=== PATIENT | female | born 1940 | race Caucasian/White ===

== ENCOUNTER → 2016-04-30 | Outpatient (CLI) | payer OTHER ==
[~2016-04-30] MED LIST: ACET-1311 PO; ASPEC81 PO; ATV/1 PO; AZITTAB PO; CLC100X PO; CLIN300C2 PO; CMD/25 PO; FERR324T PO; LOSA1TAB38 PO; MECL1TAB42 PO; MIRA100T PO; OXYB3.9D TD; OXYB5TAB74 PO; PRLSR20 PO; SENN-61 PO; SENN1TAB77 PO; viactiv PO
--- NOTE | 2016-04-30 11:28 | DIAGNOSTIC IMAGING REPORT ---
RIGHT RIBS UNILATERAL W/CHEST CLINICAL HISTORY: Right rib pain status post trauma COMPARISON STUDY: No previous studies for comparison. FINDINGS: The erect chest reveals no pneumothorax. There are minor left basilar atelectatic changes. There is aortic tortuosity. No right-sided rib fractures are visualized. IMPRESSION: No right-sided rib fractures identified. No evidence of pneumothorax. Electronically signed by: Edgar Yung M.D. 04/30/2016 11:27 AM Dictated Date/Time: 04/30/2016 11:25 AM
== END | disposition home or self-care (01) ==
LOC: C.RDSM 10:35
PROVIDERS: ATTEND Physical Medicine & Rehabilitation Sports Medicine
DX: R07.81 Pleurodynia (principal)

== ENCOUNTER 2016-06-17 06:46 | Emergency (ER) | payer OTHER ==
[~2016-06-17] VITALS: Ht 154.9 cm; Wt 66.7 kg
[~2016-06-17 06:46] MED LIST changes: -ACET-1311 PO; -AZITTAB PO; -CLIN300C2 PO; -MECL1TAB42 PO; -MIRA100T PO; -OXYB3.9D TD; -OXYB5TAB74 PO
[2016-06-17 06:51] VITALS: TEMP 36.6; Ht 154.9 cm; Wt 66.7 kg
[2016-06-17] MEDS ORDERED: MECLIZINE HCL 25 MG TAB PO STA (07:13)
--- NOTE | 2016-06-17 07:19 | EMERGENCY ROOM VISIT NOTE ---
History First contact with patient: 07:05 Chief Complaint: SINUS CONGESTION/PRESSURE Stated Complaint: BALANCE OFF,COUGH,SINUS DRAINAGE History of Present Illness The patient is a 75 year old female who presents to the Emergency Room via private vehicle accompanied by with complaints of "balance off, cough, sinus drainage". The patient states that beginning April 10 she developed a cough, and sinus congestion with postnasal drainage. She states this was constant, and she utilized [id number] medication and felt better. She states that the cough has persisted at night, she blows her nose she will see little bit of blood. She notes that beginning last night she felt slightly off balance, almost as if she was on a cruise. She states she woke up today and still felt off balance. There is associated nonproductive cough. The patient denies any vision changes, chest pain, shortness of breath, speech troubles, unilateral or extremity weakness, nausea, vomiting, history of pulmonary embolism, history of stroke, history of myocardial infarction, diarrhea or constipation. The patient is not on any blood thinners. Review of Systems A complete 10-point Review of Systems was discussed with the patient, with pertinent positives and negatives listed in the History of Present Illness. All remaining Review of Systems questions can be considered negative unless otherwise specified. Past Medical/Surgical History High blood pressure, urinary problems. Family History Heart disease, high blood pressure Social History Smoking Status: Never Smoker Social History: Patient lives at home with male, denies tobacco and alcohol use. Current/Historical Medications Scheduled Azithromycin (Zithromax Z-Yovany), 1 PKT PO UD Lorazepam (Ativan), 1 MG PO HS Losartan Potassium (Cozaar), 100 MG PO QPM Oxybutynin Chloride (Oxytrol), 1 PATCH TD TW Scheduled PRN Meclizine Hcl (Meclizine Hcl), 1 TAB PO TID PRN for Dizziness or Vertigo Allergies Coded Allergies: Ciprofloxacin (Verified Allergy, Intermediate, HIVES, 01/07/11) Penicillins (Verified Allergy, Intermediate, HIVES, NOT ALLERGIC TO CEPHALOSPORINS, 01/21/12) Morphine (Verified Adverse Reaction, Intermediate, N/V, 01/20/12) Codeine (Verified Adverse Reaction, Unknown, STOMACH PROBLEMS, 01/22/12) Physical Exam Vital Signs Date Time Temp Pulse Resp B/P Pulse Ox O2 Delivery O2 Flow Rate FiO2 06/17/16 08:26 71 18 127/74 97 Room Air 06/17/16 06:51 36.6 70 20 142/84 97 Room Air Physical Exam VITAL SIGNS - Vital signs and nursing notes were reviewed. Patient is afebrile , normotensive, non-tachycardic and saturating well on room air 97%. GENERAL -75-year-old female appearing her stated age who is in no acute distress. Communicates well with provider and answers questions appropriately. SKIN - Without rashes. No breaks in the integument. HEAD - NC/AT. EYES - PERRL with EOMI bilaterally. Sclera anicteric. Palpebral conjunctiva pink and moist with no injection noted. EARS - No deformities of external structures noted on gross examination bilaterally. No pain elicited with palpation of the tragus bilaterally. External auditory canals without discharge or otorrhea. Tympanic membranes pearly bush without retraction or bulging. No fluid or purulent material visualized behind the TM. Handle of malleus, umbo, cone of light, pars tensa/ flaccid all easily visualized. NOSE - Midline and without cyanosis. No epistaxis or purulent drainage noted. Septum midline without deviation or septal hematoma noted. There is evidence of irritation of the nasal mucosa. MOUTH/OROPHARYNX - Without perioral cyanosis. Buccal mucosa pink and moist and without leukoplakia. Tongue midline with equal elevation of palate bilaterally. No tonsillar hypertrophy, erythema, or exudates noted. Fair dentition noted. NECK - Neck with FROM. Supple to palpation. No lymphadenopathy noted. No nuchal rigidity. LUNGS - Chest wall symmetric without accessory muscle use, intercostals retractions, or central cyanosis. Normal vesicular breath sounds CTA B/L. No wheezes, rales, or rhonchi appreciated. CARDIAC - RRR with S1/S2. No murmur, rubs, or gallops appreciated. EXTREMITIES - No clubbing or peripheral cyanosis. No pretibial edema present. Patient is vascularly intact in her extremity. Cranial nerves II through XII grossly intact. Sensory intact to light touch throughout. Patellar reflexes +2/ 4. PSYCH - A&Ox3 and cooperates fully with examiner. Pt is very pleasant and interacts well with examiner. No neurologic deficits appreciated on exam. Medical Decision & Procedures ER Provider Diagnostic Interpretation: TWO VIEW CHEST CLINICAL HISTORY: Cough. FINDINGS: PA and lateral chest radiographs are compared to study dated 12/15/2010. Correlation is made with chest CT dated 01/10/2013. The heart is top normal for projection. There is mild atherosclerotic calcification of the thoracic aorta. Chronic interstitial thickening is similar to previous. Atelectasis/scarring is noted at the left lateral lung base. There is no airspace consolidation typical for pneumonia or pleural effusion. There is no pneumothorax. The skeletal structures are osteopenic. Degenerative change and mild scoliosis are noted in the thoracic spine. IMPRESSION: No active disease in the chest. Electronically signed by: Jacques Yu M.D. 06/17/2016 7:51 AM Dictated Date/Time: 06/17/2016 7:[address] NON[address]AST CT DOSE: 537.48 mGy.cm HISTORY: Mental status change Off balance, sinus congestion TECHNIQUE: Multiaxial CT images of the head were performed without the use of intravenous contrast. Comparison: None. Findings: The paranasal sinuses and mastoid air cells are clear. The calvarium and skull base are intact. The ventricles and sulci are within normal limits. There is no mass, hematoma, midline shift, or acute infarct. Impression: No acute intracranial abnormality. Electronically signed by: Travis Mcdermott M.D. 06/17/2016 7:52 AM Dictated Date/Time: 06/17/2016 7:51 AM Laboratory Results Test 06/17/16 07:35 Urine Color YELLOW Urine Appearance CLEAR (CLEAR) Urine pH 5.0 (4.5-7.5) Urine Specific [place] 1.023 (1.000-1.030) Urine Protein NEG (NEG) Urine Glucose (UA) NEG (NEG) Urine Ketones NEG (NEG) Urine Occult Blood TRACE (NEG) Urine Nitrite NEG (NEG) Urine Bilirubin NEG (NEG) Urine Urobilinogen NEG (NEG) Urine Leukocyte Esterase NEG (NEG) Urine WBC (Auto) 1-5 /hpf (0-5) Urine RBC (Auto) 0-4 /hpf (0-4) Urine Hyaline Casts (Auto) 1-5 /lpf (0-5) Urine Epithelial Cells (Auto) 20-30 /lpf (0-5) Urine Bacteria (Auto) NEG (NEG) Medications Administered Medications (Trade) Dose Ordered Sig/Trena Route Start Time Stop Time Status Last Admin Dose Admin Meclizine HCl (Antivert Tab) 25 mg NOW STAT PO 06/17/16 07:13 06/17/16 07:15 DC 06/17/16 07:24 25 MG Medical Decision Patient was seen and evaluated as above. After obtaining a thorough history and physical examination likely the patient appeared to be experiencing vertigo as well as acute sinusitis. Due to her presentation, CT scan of the head was obtained as well as a chest x-ray to evaluate for any potential pneumonia. EKG was also obtained secondary to the patient experiencing a sense of off balance. She was also given 25 mg of meclizine for the potential vertigo. CT scan of the head was unremarkable. Chest x-ray appears similar to previous with no significant change note indicating cause of today's symptoms. EKG also appears similar to previous, with a normal sinus rhythm rate of 64 bpm, without acute ectopy or ischemic change. This was compared with previous EKG in 2011, and no significant change was found. The patient was reevaluated noted be feeling much better after receiving meclizine. This does correlate with the patient experiencing vertigo. She did appear to be feeling much better after this medication. In the absence of any acute findings I do believe it is appropriate to treat the vertigo at this time. She was given a prescription for meclizine 25 mg as needed 3 times a day daily for vertigo. She is to take these only as needed for the dizziness/vertigo. She is to follow up with her family doctor regarding today's visit, and is to return sooner with any new/ concerning symptoms. She was educated upon worrisome symptoms which to return, had questions answered prior to discharge, and was discharged home in good condition. Given her sinus congestion I will also treat for acute sinusitis, and due to her penicillin allergy will prescribe her azithromycin. In the evaluation and treatment of this patient the following differential diagnoses were entertained: VA, PE, TIA, CVA, vertigo, dehydration, among others. Impression Primary Impression: Vertigo Additional Impression: Acute sinusitis Departure Information Dispostion Home / Self-Care Condition GOOD Prescriptions Azithromycin (ZITHROMAX Z-YOVANY) 250 Mg Tab 1 PKT PO UD for 5 Days, #1 PKT Prov: Sherwin Caballero, [place] 06/17/16 Meclizine Hcl (MECLIZINE HCL) 25 Mg Tab 1 TAB PO TID Y for Dizziness or Vertigo for 30 Days, #90 TAB Prov: Sherwin Caballero PA-C 06/17/16 Referrals Trace Sousa, [facility] (PCP) Patient Instructions [facility] Additional Instructions You were seen in the emergency Department for your sinus congestion and dizziness. CT scan of your head does not reveal any evidence of stroke or other abnormalities. Your chest x-ray does not reveal any pneumonia. It is recommended you take meclizine, 25 mg up to 3 times daily as needed for dizziness and vertigo. You've also been prescribed azithromycin. This is a Z-Yovany to help treat any potential sinusitis you may be experiencing. Please follow-up with your family doctor regarding today's visit. Please call Dr. Bach office later today to schedule follow-up. Problem Qualifiers
[2016-06-17 07:51] LABS: URINE APPEARANCE CLEAR (CLEAR); URINE BILIRUBIN NEG (NEG); URINE COLOR YELLOW; URINE EPITHELIAL CELL AUTO 20-30 /lpf (0-5); URINE NITRITE NEG (NEG); URINE SPECIFIC GRAVITY 1.023 (1.000-1.030); UROBILINOGEN NEG (NEG); ZZUR CULT IF INDIC CLEAN CATCH NO
--- NOTE | 2016-06-17 07:53 | DIAGNOSTIC IMAGING REPORT ---
TWO VIEW CHEST CLINICAL HISTORY: Cough. FINDINGS: PA and lateral chest radiographs are compared to study dated 12/15/2010. Correlation is made with chest CT dated 01/10/2013. The heart is top normal for projection. There is mild atherosclerotic calcification of the thoracic aorta. Chronic interstitial thickening is similar to previous. Atelectasis/scarring is noted at the left lateral lung base. There is no airspace consolidation typical for pneumonia or pleural effusion. There is no pneumothorax. The skeletal structures are osteopenic. Degenerative change and mild scoliosis are noted in the thoracic spine. IMPRESSION: No active disease in the chest. Electronically signed by: Jacques Yu M.D. 06/17/2016 7:51 AM Dictated Date/Time: 06/17/2016 7:50 AM
--- NOTE | 2016-06-17 07:54 | DIAGNOSTIC IMAGING REPORT ---
HEAD CT NONCONTRAST CT DOSE: 537.48 mGy.cm HISTORY: Mental status change Off balance, sinus congestion TECHNIQUE: Multiaxial CT images of the head were performed without the use of intravenous contrast. Comparison: None. Findings: The paranasal sinuses and mastoid air cells are clear. The calvarium and skull base are intact. The ventricles and sulci are within normal limits. There is no mass, hematoma, midline shift, or acute infarct. Impression: No acute intracranial abnormality. Electronically signed by: Travis Mcdermott M.D. 06/17/2016 7:52 AM Dictated Date/Time: 06/17/2016 7:51 AM
[2016-06-17 07:59] LABS: MANUAL MICROSCOPIC REQUIRED? NO; REVIEW REQ? NO
[2016-06-17] MEDS ORDERED: OXYB3.9D TD (08:10)
[2016-06-17 08:26] VITALS: BP 127/74; PULSE 71; O2SAT 97
[2016-06-17] MEDS ORDERED: MECL1TAB42 PO (08:41)
[2016-06-17] MEDS ORDERED: AZITTAB PO (08:41)
--- NOTE | 2016-06-19 10:26 | EMERGENCY ROOM VISIT NOTE ---
ED Visit Note First contact with patient: 07:05 Physician [employer] Deck Hand Supervision Note: I interviewed and examined the patient. Discussed with Sherwin Caballero PA-C and agree with findings and plan as documented in the note. Any exceptions or clarifications are listed here: [None] Pt was feeling improved on my evaluation after po meclizine. Head CT is negative. Pt will be d/c with a Rx for meclizine and f/u with PCP. She and s/ o are aware of the plan and agree. Diagnosis: Vertigo Documented By: Jeninffer Rao
[2016-12-15] MEDS ORDERED: MIRA100T PO (12:07)
[2016-12-15] MEDS ORDERED: ACET-1311 PO (12:07)
[2016-12-15] MEDS ORDERED: OXYB5TAB74 PO (12:07)
[2016-12-15] MEDS ORDERED: CLIN300C2 PO (12:07)
== END 2016-06-17 08:50 | disposition home or self-care (01) ==
LOC: C.EDB 06:48
DX: J01.90 Acute sinusitis, unspecified (principal); R42 Dizziness and giddiness; I10 Essential (primary) hypertension; Z79.899 Other long term (current) drug therapy; Z88.0 Allergy status to penicillin; Z88.2 Allergy status to sulfonamides; Z88.5 Allergy status to narcotic agent; Z82.49 Family history of ischemic heart disease and other diseases of the circulatory system

== ENCOUNTER → 2016-08-28 | Outpatient (CLI) | payer OTHER ==
[~2016-08-28] MED LIST changes: +ACET-1311 PO; -ASPEC81 PO; -CLC100X PO; +CLIN300C2 PO; -CMD/25 PO; +DTR/5 PO; -FERR324T PO; +MIRA100T PO; +OXYB3.9D TD; -PRLSR20 PO; -SENN-61 PO; -SENN1TAB77 PO; -viactiv PO
[2016-08-28 11:33] LABS: ALT/SGPT 31 U/L (12-78); BLOOD UREA NITROGEN 21 mg/dl (7-18); BUN/CREATININE RATIO 33.8 (10-20); CALCIUM 8.9 mg/dl (8.5-10.1); CARBON DIOXIDE 26 mmol/L (21-32); CHLORIDE 108 mmol/L (98-107); CHOLESTEROL 170 mg/dl (0-200); CREATININE 0.63 mg/dl (0.60-1.20); GLUCOSE 98 mg/dl (70-99); POTASSIUM 4.1 mmol/L (3.5-5.1); SODIUM 142 mmol/L (136-145); TRIGLYCERIDES 108 mg/dl (0-150); VERY LOW DENSITY LIPOPROT CALC 22 mg/dl
[2016-08-28 11:38] LABS: ALKALINE PHOSPHATASE 54 U/L (45-117); AST/SGOT 18 U/L (15-37); CHOLESTEROL/HDL RATIO 2.9; HDL CHOLESTEROL 59 mg/dl; LDL CHOLESTEROL CALCULATED 89 mg/dl
== END | disposition home or self-care (01) ==
LOC: C.LABBC 08:14
PROVIDERS: ATTEND Family Medicine
DX: I10 Essential (primary) hypertension (principal); Z13.220 Encounter for screening for lipoid disorders

== ENCOUNTER → 2016-12-30 | Day surgery (SDC) | payer OTHER ==
[2016-12-15 12:07] VITALS: Ht 154.9 cm; Wt 68.6 kg
[~2016-12-30] VITALS: Ht 154.9 cm; Wt 68.6 kg
[~2016-12-30] MED LIST changes: -DTR/5 PO; -OXYB3.9D TD; +OXYB5TAB74 PO; +PROPOFOL IV EMULSION 10 MG/ML 20 ML VIAL IV ONE; +SODIUM CHLORIDE 0.9% 500ML 500 ML IV ONE
[2016-12-30 09:31] VITALS: TEMP 36.5
--- NOTE | 2016-12-30 09:33 | Endo History and Physical ---
History & Physical Date of Service: Dec 30, 2016. Chief Complaint: Screening Referring Physician: Babita Lal History of Present Illness 76 yo CF who presents for screening colonoscopy. Past Surgical History Hx Cardiac Surgery: No Hx Internal Defibrillator: No Hx Pacemaker: No Hx Abdominal Surgery: Yes (OVARIAN CYSTECTOMY, TUBAL LIGATION) Hx of Implantable Prosthesis: No Hx Post-Op Nausea and Vomiting: No Hx Cancer Surgery: No Hx Thoracic Surgery: No Hx Orthopedic: Yes (LT/RT TKA) Hx Urinary Tract Surgery: No Family History None Social History Smoking Status: Never Smoker Hx Substance Use: No Hx Alcohol Use: No Allergies Coded Allergies: Ciprofloxacin (Verified Allergy, Intermediate, HIVES, 12/15/16) Penicillins (Verified Allergy, Intermediate, HIVES, NOT ALLERGIC TO CEPHALOSPORINS, 12/15/16) Adhesives (Verified Allergy, Unknown, LOCAL SWELLING, RED AND IRRITATED SKIN, 12/15/16) Latex1 -Allergic Contact Dermititis (Verified Allergy, Unknown, SKIN IRRITATION, 12/15/16) Morphine (Verified Adverse Reaction, Intermediate, N/V, 12/15/16) Codeine (Verified Adverse Reaction, Unknown, STOMACH PROBLEMS, 12/15/16) Current Medications Reported Home Medications Medications Dose Route/Sig Max Daily Dose Days Date Category Tylenol (Acetaminophen) 325 Mg Tab 650 Mg PO Q4-6H PRN 12/15/16 Reported Myrbetriq Er (Mirabegron) 25 Mg Tab 25 Mg PO DAILY PRN 12/15/16 Reported Cleocin (Clindamycin Hcl) 300 Mg Cap 2 Tabs PO UD PRN 10 12/15/16 Reported Ditropan (Oxybutynin Chloride) 5 Mg Tab 5 Mg PO QPM 12/15/16 Reported Ativan (Lorazepam) 1 Mg Tab 0.5 Tab PO HS 12/22/11 Reported Cozaar (Losartan Potassium) 100 Mg Tab 100 Mg PO QPM 12/22/11 Reported Vital Signs Weight (Kilograms): 68.64 Height (Feet): 5 Height (Inches): 1 Physical Exam General Appearance: WD/WN, no apparent distress Respiratory/Chest: Auscultation: breath sounds normal Cardiovascular: Heart Auscultation: RRR Abdomen: Bowel Sounds: normal Inspection & Palpation: soft, non-distended, no tenderness, guarding & rebound Assessment and Plan Assessment: 76 yo CF who presents for screening colonoscopy. Plan: Proceed with colonoscopy.
--- NOTE | 2016-12-30 10:01 | Discharge Instructions ---
Endoscopy Patient Instructions Date / Procedure(s) Performed Dec 30, 2016. Colonoscopy Allergy Information Coded Allergies: Ciprofloxacin (Verified Allergy, Intermediate, HIVES, 12/15/16) Penicillins (Verified Allergy, Intermediate, HIVES, NOT ALLERGIC TO CEPHALOSPORINS, 12/15/16) Adhesives (Verified Allergy, Unknown, LOCAL SWELLING, RED AND IRRITATED SKIN, 12/15/16) Latex1 -Allergic Contact Dermititis (Verified Allergy, Unknown, SKIN IRRITATION, 12/15/16) Morphine (Verified Adverse Reaction, Intermediate, N/V, 12/15/16) Codeine (Verified Adverse Reaction, Unknown, STOMACH PROBLEMS, 12/15/16) Discharge Date / Findings Dec 30, 2016. Colon polyps Diverticulosis Internal hemorrhoids Medication Instructions OK to resume all medications today as prescribed Reported Home Medications Medications Dose Route/Sig Max Daily Dose Days Date Category Tylenol (Acetaminophen) 325 Mg Tab 650 Mg PO Q4-6H PRN 12/15/16 Reported Myrbetriq Er (Mirabegron) 25 Mg Tab 25 Mg PO DAILY PRN 12/15/16 Reported Cleocin (Clindamycin Hcl) 300 Mg Cap 2 Tabs PO UD PRN 10 12/15/16 Reported Ditropan (Oxybutynin Chloride) 5 Mg Tab 5 Mg PO QPM 12/15/16 Reported Ativan (Lorazepam) 1 Mg Tab 0.5 Tab PO HS 12/22/11 Reported Cozaar (Losartan Potassium) 100 Mg Tab 100 Mg PO QPM 12/22/11 Reported Provider Instructions Activity Restrictions - No exercising or heavy lifting for 24 hours. - Do not drink alcohol the day of the procedure. - Do not drive a car or operate machinery until the day after the procedure. - Do not make any important decisions or sign important papers in 24 hours after the procedure. Following Day: - Return to full activity which may include returning to work/school. Diet Start your diet with liquids and light foods (jello, soup, juice, toast). Then eat your usual diet if not nauseated. Treatment For Common After Affects For mild abdominal pain, bloating, or excessive gas: - Rest - Eat lightly - Lie on right side Follow-Up Information Follow-up with Babita Lal as scheduled Anesthesia Information What You Should Know You have had a procedure that required some medicine to reduce anxiety and discomfort. This treatment is called moderate sedation. After receiving the treatment, you may be sleepy, but you will be able to breathe on your own. The effects of the treatment may last for several hours. Follow these instructions along with Activity/Diet recommendations noted above: * Do NOT do anything where dizziness or clumsiness would be dangerous. * Rest quietly at home today, then you can be up and about tomorrow. * Have a responsible person stay with you the rest of today. * You may have had an I.V. today. If so, you may take the dressing off later today. Recommendations Call your doctor if: * Trouble breathing * Continuous vomiting for more than 24 hours * Temperature above 101 degrees * Severe abdominal pain or bloating * Pain not relieved by pain medicine ordered * There is increased drainage or redness from any incision * A large amount of rectal bleeding greater than 2-3 tablespoons. (If you had a polyp/s removed or have hemorrhoids, a small amount of blood - from the rectum is to be expected.) * You have any unanswered questions or concerns. IN THE EVENT OF A SERIOUS EMERGENCY, GO TO THE NEAREST EMERGENCY ROOM Your discharge instructions were prepared by provider Glenn Miller. Patient Instructions Signature Page Pamela Birch Patient (or Guardian) Signature/Date: I have read and understand the instructions given to me by my caregivers. Caregiver/RN/Doctor Signature/Date: The above-named patient and/or guardian has received patient instructions on this date. + Original Patient Signature Page (only) stays with chart. Please make copy for patient.
--- NOTE | 2016-12-30 10:01 | GI REPORT ---
Procedure Date: 12/30/2016 9:43 AM Procedure: Colonoscopy Indications: Screening for colorectal malignant neoplasm Medicines: Monitored Anesthesia Care Complications: No immediate complications. Estimated Blood Loss: Estimated blood loss: none. Procedure: Pre-Anesthesia Assessment: - Prior to the procedure, a History and Physical was performed, and patient medications and allergies were reviewed. The patient's tolerance of previous anesthesia was also reviewed. The risks and benefits of the procedure and the sedation options and risks were discussed with the patient. All questions were answered, and informed consent was obtained. Prior Anticoagulants: The patient has taken no previous anticoagulant or antiplatelet agents. ASA Grade Assessment: II - A patient with mild systemic disease. After reviewing the risks and benefits, the patient was deemed in satisfactory condition to undergo the procedure. After I obtained informed consent, the scope was passed under direct vision. Throughout the procedure, the patient's blood pressure, pulse, and oxygen saturations were monitored continuously. The scope was introduced through the anus and advanced to the terminal ileum. The colonoscopy was performed without difficulty. The patient tolerated the procedure well. The quality of the bowel preparation was good. The terminal ileum, ileocecal valve, appendiceal orifice, and rectum were photographed. Findings: Two sessile polyps were found in the sigmoid colon and in the ascending colon. The polyps were 4 to 7 mm in size. These polyps were removed with a hot snare. Resection and retrieval were complete. Multiple small-mouthed diverticula were found in the sigmoid colon. Non-bleeding internal hemorrhoids were found during retroflexion. The hemorrhoids were small. Impression: - Two 4 to 7 mm polyps in the sigmoid colon and in the ascending colon, removed with a hot snare. Resected and retrieved. - Diverticulosis in the sigmoid colon. - Non-bleeding internal hemorrhoids. Recommendation: - Resume previous diet. - Continue present medications. - Repeat colonoscopy for surveillance based on pathology results. - Return to primary care physician as previously scheduled. Glenn Miller, DO 12/30/2016 10:00:57 AM This report has been signed electronically. Note Initiated On: 12/30/2016 9:43 AM I attest to the content of the Intraoperative Record and orders documented therein, exceptions below
--- NOTE | 2016-12-30 10:17 | Anesthesiology Progress Note ---
Anesthesia Post Op Note Date & Time Dec 30, 2016 at 10:17 Vital Signs Pain Intensity: 0 Vital Signs Past 12 Hours Date Time Temp Pulse Resp B/P (MAP) Pulse Ox O2 Delivery O2 Flow Rate FiO2 12/30/16 10:01 75 18 113/68 (83) 97 Room Air 12/30/16 09:31 36.5 81 18 147/76 (99) 96 Room Air Notes Mental Status: alert / awake / arousable, participated in evaluation Pt Amnestic to Procedure: Yes Nausea / Vomiting: adequately controlled Pain: adequately controlled Airway Patency, RR, SpO2: stable & adequate BP & HR: stable & adequate Hydration State: stable & adequate Anesthetic Complications: no major complications apparent
[2016-12-30 10:32] VITALS: BP 120/67; PULSE 70; O2SAT 97
== END | disposition home or self-care (01) ==
LOC: C.GI 08:55
PROVIDERS: ATTEND Internal Medicine
DX: Z12.11 Encounter for screening for malignant neoplasm of colon (principal); D12.2 Benign neoplasm of ascending colon; K64.8 Other hemorrhoids; K57.30 Diverticulosis of large intestine without perforation or abscess without bleeding; Z96.653 Presence of artificial knee joint, bilateral

== ENCOUNTER → 2017-05-20 | Outpatient (CLI) | payer OTHER ==
[~2017-05-20] MED LIST changes: +DTR/5 PO; -OXYB5TAB74 PO; -PROPOFOL IV EMULSION 10 MG/ML 20 ML VIAL IV ONE; -SODIUM CHLORIDE 0.9% 500ML 500 ML IV ONE
[2017-05-20 14:50] LABS: BLOOD UREA NITROGEN 23 mg/dl (7-18); CALCIUM 9.5 mg/dl (8.5-10.1); CARBON DIOXIDE 26 mmol/L (21-32); CREATININE 0.68 mg/dl (0.60-1.20); GLUCOSE 109 mg/dl (70-99); POTASSIUM 4.1 mmol/L (3.5-5.1); SODIUM 139 mmol/L (136-145)
== END | disposition home or self-care (01) ==
LOC: C.LABBC 09:29
PROVIDERS: ATTEND Nurse Practitioner Adult Health
DX: I10 Essential (primary) hypertension (principal); M81.0 Age-related osteoporosis without current pathological fracture

== ENCOUNTER 2022-03-11 17:34 | Inpatient (IN) ==
[2022-03-11 18:20] LABS: Basophils # (auto) 0.09 K/uL (0-0.2); Basophils % (auto) 1.9 %; Eosinophils # (auto) 0.16 K/uL (0-0.50); Eosinophils % (auto) 3.4 %; Hematocrit (blood only) 38.9 % (34.1-44.9); Hemoglobin 12.9 g/dl (12.0-16.0); Lymphocytes % (auto) 42.6 %; Mean Corpuscular Hemoglobin 31.1 pg (25.0-34.0); Mean Corpuscular Hgb Conc 33.2 g/dL (32.0-36.0); Mean Corpuscular Volume 93.7 fL (80.0-100.0); Mean Platelet Volume 9.7 fL (9.4-12.3); Monocytes # (auto) 0.64 K/uL (0.24-0.82); Monocytes % (auto) 13.6 %; Neutrophils # (auto) 1.81 K/uL (1.4-6.5); Neutrophils % (auto) 38.5 %; Platelet Count 335 K/uL (130-400); RDW Coefficient of Variation 11.9 % (11.5-14.5); RDW Standard Deviation 41.1 fL (36.4-46.3); Red Blood Count 4.15 M/uL (3.93-5.22)
--- NOTE | 2022-03-11 18:37 | Emergency Department Note ---
Impression & Plan Abnormal patient-activated cardiac event monitor, Heart palpitations, Fatigue, Acute dehydration ED Provider Note NAME: ALIA RIVAS AGE: 81 SEX: F : 1940 ARRIVES VIA: Walk-In INFORMANT: Patient, ED PROVIDER(S): Timur Oropeza MD Chief Complaint: Palpitations HPI: Patient presents due to concern for changes in pulse palpitations as well as feeling as though she is hot and cold. Patient has had several weeks of symptoms and has followed up with a primary care doctor several times only recently to be told that she had the results of a heart monitor and was to follow-up with a cigarette roller. The patient states that her blood pressure has been elevated where she runs in the 170s and then will drop back down to the 120s. Patient does complain of intermittent weakness and fatigue. The patient denies any chest pains. The patient may have occasional shortness of breath. No nausea vomiting no upper respiratory symptoms cough or fever. Patient does note that she has some bilateral lower extremity swelling but this is fairly unchanged. The patient states she is compliant with medications and does take olmesartan as well as carvedilol for blood pressure. Patient denies any supplements stimulants, thyroid supplements, alcohol tobacco drug use or stimulants. The patient denies any caffeine. Patient did take her morning medications ROS: See HPI for pertinent positives and negatives. A total of 10 systems were reviewed and otherwise negative. Past medical history: See below Surgical history: See below Social history: See below Physical Exam: GENERAL: NAD, wearing a mask, non-toxic. Wearing glasses. EYE EXAM: Normal conjunctiva. PERRL, no anisocoria and EOM's grossly intact w/o pain. NECK: Supple, no nuchal rigidity, no adenopathy, non-tender. No signs of meningismus. FROM of the neck with good chin to chest and neck extension. No stridor. LUNGS: Clear to auscultation. Normal chest wall mechanics. HEART: NSR, no MRG. ABDOMEN: Abdomen soft, non-tender, normo-active bowel sounds, no masses, no rebound or guarding. BACK: No CVA TTP. SKIN: No rashes and no bruising. UPPER EXTREMITIES: Upper extremities are grossly normal. LOWER EXTREMITIES: Grossly normal, nonpitting edema of the bilateral lower extremities without any calf pain or erythema, compartments are soft. NEURO EXAM: A&O x3, cranial nerves II-XII grossly intact, normal speech, moves all 4 extremities. Differential diagnoses: Benign hypertension, hypertensive emergency, cardiovascular pathology, toxicologic, pheochromocytoma, electrolyte abnormality, renal disease, endorgan damage, as well as other pathologies. Course: Patient was seen and evaluated the bedside. Full history physical exam was performed. EKG interpreted by me Normal sinus rhythm, rate of 72, normal intervals left axis deviation, left anterior fascicular block, no ST elevations, T wave version lead III not contiguous leads Imaging Studies: See Below Cardiac monitoring: An order was placed for continuous cardiac monitoring. The monitor shows a rate of 77 with sinus rhythm. MDM: Patient presents due to concern for hypertension as well as intermittent palpitations. I did review the patient's heart monitor report which showed that the patient did have several runs of V. tach as well as SVT. Patient for shows very mild leukopenia 4.7 with normal H&H and platelet count. Kidney function is unremarkable. Patient's troponin is not elevated. COVID- negative. EKG with no obvious arrhythmia. I did speak the on-call cigarette roller Dr. Flores recommended observation and admission. I did speak the on-call hospitalist Dr. Escamilla and the patient was admitted to the medicine service. 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 Dheeraj Lloyd - q6m Hiatal hernia History of colon polyps Hx of migraines Hypertension Neurogenic claudication due to lumbar spinal stenosis Osteoporosis Paroxysmal SVT (supraventricular tachycardia) pt states no current problems - does not follow cigarette roller Restless leg syndrome Seasonal allergies inhalers as need Temporomandibular joint disorder Tricuspid regurgitation Does not follow cigarette roller Surgical History H/O arthroscopy of left knee H/O colonoscopy H/O ovarian cystectomy H/O tubal ligation History of anesthesia reaction NAUSEA/VOMITTING AND "BAD EXPERIENCE WITH 1ST KNEE SURGERY", SAW GREEN FELT LIKE SHE WAS DYING. History of cataract surgery bilateral History of cystoscopy History of esophagogastroduodenoscopy (EGD) History of temporal artery biopsy (08/02/19) Temporal Artery Biopsy on Left 08/02/19 Dr. Hager - diagnosed with Giant Cell History of tooth extraction History of total knee replacement RT/LEFT Family History Uncle Myocardial infarction Father Diabetes Angina pectoris Family history of diabetes mellitus Unknown Heart disease Migraine Hypertension Denies family history of Ovarian cancer Prostate cancer Breast cancer Lung cancer Colorectal cancer Stroke Social History Smoking Status: Never smoker Second Hand Exposure: No; Hx Alcohol Use: No Hx Substance Use: No Preferred Language: Nepali Communication Ability: Effective Visual Impairment: Limited Hearing Ability: Use of Hearing Aid Clean Up Person Required: No Beliefs That Will Affect Care: None marital status: Current Living Situation: Spouse current occupational status: retired current occupation: just retired from [employer] in 2020 How many Children do You have: 0 Other Information That Helps Us Care for You: No Feels Safe at Home: Yes Safety Concerns: Feels Safe At This Time Childhood Exposure to Second-Hand Smoke: Yes caffeine: Yes Dental Care, Regularly: Yes Physical Activity Frequency: Daily Physical Activity Frequency Comment: walking Seatbelt Use: always Sunscreen Use: Yes Do you think of yourself as: straight/heterosexual Assistive Devices: Glasses and Hearing Aid - Bilateral Assistive Devices Comment: walking stick when walking dog Allergies Allergies Allergy/AdvReac Type Severity Reaction Status Date / Time adhesive Allergy Intermediate LOCAL Verified 03/11/22 20:00 SWELLING, RED AND IRRITATED SKIN ciprofloxacin Allergy Intermediate HIVES Verified 03/11/22 20:00 Penicillins Allergy Intermediate Hives Verified 03/11/22 20:00 latex Allergy Mild SKIN Verified 03/11/22 20:00 IRRITATION codeine AdvReac Intermediate STOMACH Verified 03/11/22 20:00 PROBLEMS morphine AdvReac Intermediate N/V Verified 03/11/22 20:00 Home Meds Home Medications Medication Instructions Recorded Confirmed acetaminophen 325 mg tablet 325 mg PO UD PRN Pain 08/02/19 03/11/22 (Tylenol) fexofenadine 180 mg tablet 180 mg PO QAM PRN Congestion 03/24/21 03/11/22 (Chen Allergy) cholecalciferol (vit D3) 1,000 1 tab PO QAM 08/08/21 03/11/22 unit-vitamin K2 (MK4) 100 mcg tablet polyethylene glycol 3350 17 17 g PO QAM PRN Constipation 08/08/21 03/11/22 gram/dose oral powder (Miralax) tocilizumab 162 mg/0.9 mL 162 mg subcut Q4WK 11/12/21 03/11/22 subcutaneous pen injector rosuvastatin 5 mg tablet 5 mg PO DAILY 01/19/22 03/11/22 carvedilol phosphate 10 mg 10 mg PO DAILY 03/11/22 03/11/22 capsule,[id number] multiphase Previous Rx's Medication Instructions Recorded fluticasone 250 mcg-salmeterol 50 1 inh inhalation BID PRN sob #60 ea 12/08/21 mcg/dose blistr powdr for inhalation (Advair Diskus) olmesartan 5 mg tablet (Benicar) 5 mg PO BID #90 tabs 02/05/22 albuterol sulfate 90 mcg/actuation 1 inh inhalation UD PRN seasonal 02/18/22 aerosol inhaler allergies #8.5 grams Results & Data (ED) Vital Signs Vital Signs - 24 hr 03/11/22 17:47 03/11/22 20:09 03/11/22 20:09 Temperature 36.3 C L Temperature Source Temporal Artery Scan Pulse Rate 86 65 Pulse Rate [Radial] 65 Pulse Rhythm Regular Regular Pulse Rhythm [Radial] Regular Pulse Strength Normal Pulse Strength [Radial] Normal Respiratory Rate 20 15 15 Respiratory Effort / Characteristics Non-Labored Spontaneous Non-Labored Spontaneous Respiratory Depth Normal Normal Respiratory Pattern Regular Regular Blood Pressure 154/90 H Blood Pressure [Right Arm] 148/73 H Blood Pressure Mean 111 Blood Pressure Mean [Right Arm] 98 Blood Pressure Position [Right Arm] Lying Pulse Oximetry 96 98 95 Oxygen Delivery Method Room Air Room Air Room Air Sepsis Recent Fever Within 48 Hours No Sepsis New/Unexplained Change in Mental Status N/A Sepsis Action Taken by Nursing No Action Required Home Medications Current Medication List: was personally reviewed by me Laboratory Data Attestation: I reviewed the patient's lab results. Result diagrams: 03/11/22 18:00 03/11/22 18:00 Lab Results 03/11/22 03/11/22 03/11/22 Range/Units 18:00 18:00 18:00 WBC 4.70 L (4.8-10.8) K/ul RBC 4.15 (3.93-5.22) M/uL Hgb 12.9 (12.0-16.0) g/dl Hct 38.9 (34.1-44.9) % MCV 93.7 (80.0-100.0) fL MCH 31.1 (25.0-34.0) pg MCHC 33.2 (32.0-36.0) g/dL RDW Std Deviation 41.1 (36.4-46.3) fL RDW Coeff of Angie 11.9 (11.5-14.5) % Plt Count 335 (130-400) K/uL MPV 9.7 (9.4-12.3) fL Immature Gran % (Auto) 0.0 % Neut % (Auto) 38.5 % Lymph % (Auto) 42.6 % Davidson % (Auto) 13.6 % Eos % (Auto) 3.4 % Baso % (Auto) 1.9 % Neut # (Auto) 1.81 (1.4-6.5) K/uL Lymph # (Auto) 2.00 (1.2-3.4) K/uL Davidson # (Auto) 0.64 (0.24-0.82) K/uL Eos # (Auto) 0.16 (0-0.50) K/uL Baso # (Auto) 0.09 (0-0.2) K/uL Immature Gran # (Auto) 0.00 (0.00-0.02) K/uL PT 10.8 (9.0-12.0) Seconds INR 1.0 (0.9-1.1) APTT 23.8 (21.0-31.0) Seconds PTT Ratio 0.9 Sodium 139 (136-145) mmol/L Potassium 3.9 (3.5-5.1) mmol/L Chloride 105 (98-107) mmol/L Carbon Dioxide 27 (21-32) mmol/L Anion Gap 7 (3-11) BUN 21 (6-23) mg/dl Creatinine 0.63 (0.6-1.2) mg/dl Est Cr Clr Drug Dosing 57.6 ml/min Est GFR ( Amer) 97.5 ml/min Est GFR (Non-Af Amer) 84.1 ml/min BUN/Creatinine Ratio 33.3 H (10-20) Glucose 99 (70-99(Fasting)) mg/dl Calcium 9.1 (8.5-10.1) mg/dl Total Bilirubin 0.4 (0.2-1.0) mg/dl AST 21 (13-39) U/L ALT 16 (7-52) U/L Alkaline Phosphatase 40 (34-104) U/L Troponin I High Sens 6.2 (0-14) pg/ml Total Protein 6.9 (6.0-8.3) gm/dl Albumin 4.2 (3.4-5.0) gm/dl Globulin 2.7 (2.5-4.0) gm/dl Albumin/Globulin Ratio 1.6 (0.9-2) SARS-CoV-2, RNA, NAAT (NEGATIVE) 03/11/22 Range/Units 20:07 WBC (4.8-10.8) K/ul RBC (3.93-5.22) M/uL Hgb (12.0-16.0) g/dl Hct (34.1-44.9) % MCV (80.0-100.0) fL MCH (25.0-34.0) pg MCHC (32.0-36.0) g/dL RDW Std Deviation (36.4-46.3) fL RDW Coeff of Angie (11.5-14.5) % Plt Count (130-400) K/uL MPV (9.4-12.3) fL Immature Gran % (Auto) % Neut % (Auto) % Lymph % (Auto) % Davidson % (Auto) % Eos % (Auto) % Baso % (Auto) % Neut # (Auto) (1.4-6.5) K/uL Lymph # (Auto) (1.2-3.4) K/uL Davidson # (Auto) (0.24-0.82) K/uL Eos # (Auto) (0-0.50) K/uL Baso # (Auto) (0-0.2) K/uL Immature Gran # (Auto) (0.00-0.02) K/uL PT (9.0-12.0) Seconds INR (0.9-1.1) APTT (21.0-31.0) Seconds PTT Ratio Sodium (136-145) mmol/L Potassium (3.5-5.1) mmol/L Chloride (98-107) mmol/L Carbon Dioxide (21-32) mmol/L Anion Gap (3-11) BUN (6-23) mg/dl Creatinine (0.6-1.2) mg/dl Est Cr Clr Drug Dosing ml/min Est GFR ( Amer) ml/min Est GFR (Non-Af Amer) ml/min BUN/Creatinine Ratio (10-20) Glucose (70-99(Fasting)) mg/dl Calcium (8.5-10.1) mg/dl Total Bilirubin (0.2-1.0) mg/dl AST (13-39) U/L ALT (7-52) U/L Alkaline Phosphatase (34-104) U/L Troponin I High Sens (0-14) pg/ml Total Protein (6.0-8.3) gm/dl Albumin (3.4-5.0) gm/dl Globulin (2.5-4.0) gm/dl Albumin/Globulin Ratio (0.9-2) SARS-CoV-2, RNA, NAAT NEGATIVE (NEGATIVE) Administered Medications Discontinued Medications Sodium Chloride (Nss 1000ml) 500 mls @ 999 mls/hr IV .Q31M ONE Stop: 03/11/22 19:45 Last Infusion: 03/11/22 20:44 Dose: 0 mls/hr Documented By: Admin: 03/11/22 20:09 Dose: 999 mls/hr Documented By: TAY Discharge Plan Visit Data Chief Complaint: Hypertension Stated Complaint: HIGH BP, HOT AND COLD PULSE ED Provider: Timur Oropeza Discharge Problem: Abnormal patient-activated cardiac event monitor, Heart palpitations, Fatigue, Acute dehydration Patient Disposition: Admitted As Inpatient Discharge Instructions Interventions: ED Discharge Assessment Last Done: 03/11/22 22:05
[2022-03-11 18:46] LABS: Partial Thromboplastin Ratio 0.9; Partial Thromboplastin Time 23.8 Seconds (21.0-31.0); Prothrombin Time 10.8 Seconds (9.0-12.0)
[2022-03-11 18:48] LABS: Troponin I High Sensitivity 6.2 pg/ml (0-14)
[2022-03-11 18:50] LABS: Albumin Globulin Ratio 1.6 (0.9-2); Albumin Level 4.2 gm/dl (3.4-5.0); BUN Creatinine Ratio 33.3 (10-20); Bilirubin,Total 0.4 mg/dl (0.2-1.0); Calcium 9.1 mg/dl (8.5-10.1); Creatinine Clr Calc Pharmacy 57.6 ml/min; Est GFR (African American) 97.5 ml/min; Est GFR (Non-African American) 84.1 ml/min; Globulin 2.7 gm/dl (2.5-4.0); Potassium 3.9 mmol/L (3.5-5.1); Total Protein 6.9 gm/dl (6.0-8.3)
[2022-03-11] MEDS ORDERED: SODIUM CHLORIDE 0.9% 1000ML 500 ML IV ONE (19:15)
[2022-03-11] MEDS ORDERED: FEXOFENADINE HCL 180 MG TAB PO PRN (22:36)
[2022-03-11] MEDS ORDERED: NITROGLYCERIN SL 0.4 MG/TAB TAB SL PRN (22:36)
[2022-03-11] MEDS ORDERED: ALBUTEROL HFA 8 GM INHALER INH PRN (22:36)
[2022-03-11] MEDS ORDERED: POLYETHYLENE (MIRALAX) 17 GM PACK PO PRN (22:36)
[2022-03-11] MEDS ORDERED: CARVEDILOL PHOSPHATE 10 MG PO SCH (22:36)
[2022-03-11] MEDS ORDERED: ACETAMINOPHEN 325 MG TAB PO PRN (22:36)
[2022-03-11] MEDS ORDERED: FLUTICASONE/VILANTEROL 100/25MCG 14 PUFFS/INHALER INH PRN (23:13)
[2022-03-11] MEDS: OLMESARTAN MEDOXOMIL 5 MG TAB PO SCH (23:44)
[2022-03-11] MEDS ORDERED: carvediloL 3.125 MG TAB PO ONE (23:49)
--- NOTE | 2022-03-12 00:23 | History and Physical Report ---
DATE OF ADMISSION: 03/11/2022 CHIEF COMPLAINT: Palpitations and labile hypertension. HISTORY OF PRESENT ILLNESS: An 81-year-old female with past medical history significant for hypertension, history of giant cell arteritis, carotid aneurysm, looks like saw neurosurgery and was stable, history of spinal stenosis, GERD, presents with palpitations and labile hypertension. The patient had a Zio patch for palpitation and the reading came back as having four episodes of V-tach, longest was 5 seconds and multiple episodes of SVT. She says she had a followup appointment with Cardiology, but her symptoms got worse and she had a lot of palpitations last night and also her blood pressure was going up and down, which worried her and she came to the ER .She also states since last 3 months, she was feeling hot and cold.Denies any chest pain. Sometimes she will have symptoms of short of breath. Denies any headache, no dizziness. The patient says on and off she feels blurred visions. No earache, no runny nose, no sore throat, no cough, no difficulty swallowing. Appetite is okay. No nausea, no vomiting, no abdominal pain. Normal bowel and bladder movements. No swelling in the legs. Ambulates without any support, lives with her . Currently, resting comfortably and hemodynamically stable. ALLERGIES: ADHESIVES, CIPROFLOXACIN, PENICILLIN, LATEX, CODEINE, MORPHINE. PAST MEDICAL HISTORY: As mentioned above. PAST SURGICAL HISTORY: Bilateral knee arthroplasty, catheter placement in internal carotid artery bilaterally, ligation of oviducts, biopsy of temporal artery, removal of ovarian cyst, bilateral vertebral artery catheter placement. MEDICATIONS: The patient is on Tylenol 325 mg p.r.n., albuterol 2 puffs inhalation p.r.n., Coreg er 10 mg p.o. daily, vitamin D 1000 units p.o. daily, Chen 180 mg p.o. daily p.r.n., fluticasone inhalation b.i.d. p.r.n., olmesartan 5 mg p.o. b.i.d., MiraLax 17 grams p.o. daily p.r.n., rosuvastatin 5 mg p.o. daily, tocilizumab injections q. 4 weeks. FAMILY HISTORY: Significant for mother at age of 91; father had diabetes, at age of 89. SOCIAL HISTORY: . No smoking, no alcohol, no drug use. REVIEW OF SYSTEMS: As per HPI. Rest of the review of systems is negative. PHYSICAL EXAMINATION: GENERAL: The patient is of moderate build, not in acute distress. VITAL SIGNS: Temperature 36.3, pulse 65, respiratory rate 15, blood pressure 148/73, oxygen 95% on room air. HEENT: Pupils equal, round and reactive to light. Oral mucosa moist. NECK: No JVD, no neck masses. CARDIOVASCULAR: S1 and S2 heard. Regular rate and rhythm. No murmur, no gallop. RESPIRATORY SYSTEM: Normal AP diameter. No accessory muscle use. No wheezing, no crackles. ABDOMEN: Soft, bowel sounds present, nontender, no distention. CENTRAL NERVOUS SYSTEM: Cranial nerves II-XII grossly intact, nonfocal. EXTREMITIES: No edema, no erythema. LABORATORY DATA: WBC 4.7, hemoglobin 12.9, hematocrit 38.9, platelets 235. PT 10.9, INR 1, APTT 23.8. Sodium 139, potassium 3.9, chloride 105, bicarb 27, BUN 21, creatinine 0.6, serum glucose 99, calcium 9.1, total bilirubin 0.4, AST 21, ALT 16, alkaline phosphatase 40. Troponin I high sensitivity 6.2. SARS-CoV-2 rapid test negative. EKG: Shows normal sinus rhythm, rate of 72, left anterior fascicular block, no acute ST changes seen. ASSESSMENT AND PLAN: This is an 81-year-old female who presents with palpitations and labile hypertension. 1. Palpitations and labile hypertension. The patient had a Zio patch, which showed likely four episodes of V-tach, longest was of 5 seconds with multiple episodes of SVT. It looks like her Coreg dose has been long acting. Coreg dose was increased to 20 mg, but the patient still taking 10 mg. Heart rate is 65 currently. We will continue with Coreg ER 10 mg and closely monitor in tele floor. We don't have long acting Coreg, changed to Coreg 3.25mg bid as per pharmacy recommendations We will get an echo. N.p.o. after midnight. Consult cardiology in the a.m. Cardiology was notified by the ER. Closely monitor. 2. Hypertension. Continue Coreg and olmesartan for now. We will monitor the blood pressure in the hospital. 3. History of giant cell arteritis. On tocilizumab shots every 4 weeks. Follow up with Rheumatology. 4. Hyperlipidemia: On statin. 5. Deep venous thrombosis prophylaxis: Sequential compression devices for now. DISPOSITION: Closely monitor in tele floor. Level 1 full code. PT, OT prior to discharge. Social service to help with discharge planning. Job ID: [id number] [id number]
[2022-03-12 06:01] LABS: BUN Creatinine Ratio 28.3 (10-20); Calcium 8.6 mg/dl (8.5-10.1); Creatinine Clr Calc Pharmacy 68.5 ml/min; Est GFR (African American) 103.2 ml/min; Magnesium 2.1 mg/dl (1.7-2.4)
[2022-03-12 06:05] LABS: Basophils # (auto) 0.07 K/uL (0-0.2); Basophils % (auto) 2.1 %; Eosinophils % (auto) 5.9 %; Immature Granulocytes # (auto) 0.01 K/uL (0.00-0.02); Immature Granulocytes % (auto) 0.3 %; Lymphocytes # (auto) 1.34 K/uL (1.2-3.4); Lymphocytes % (auto) 39.5 %; Mean Corpuscular Hemoglobin 30.8 pg (25.0-34.0); Mean Corpuscular Hgb Conc 33.3 g/dL (32.0-36.0); Mean Corpuscular Volume 92.5 fL (80.0-100.0); Mean Platelet Volume 9.7 fL (9.4-12.3); Monocytes # (auto) 0.45 K/uL (0.24-0.82); Monocytes % (auto) 13.3 %; Neutrophils # (auto) 1.32 K/uL (1.4-6.5); Neutrophils % (auto) 38.9 %; Platelet Count 292 K/uL (130-400); Red Blood Count 3.89 M/uL (3.93-5.22); White Blood Count 3.39 K/ul (4.8-10.8)
[2022-03-12 06:07] LABS: Troponin I High Sensitivity 5.7 pg/ml (0-14)
--- NOTE | 2022-03-12 08:03 | Cardiology Consultation ---
Date of Consultation March 12, 2022 Assessment & Plan (1) Heart palpitations: (2) Fatigue: (3) Elevated fasting glucose: (4) Anxiety: (5) Paroxysmal SVT (supraventricular tachycardia): (6) Giant cell arteritis: (7) Cerebrovascular small vessel disease: Plan The results of the yardage caller both inpatient and outpatient were reviewed with the patient as well as the results of her echocardiogram which was unremarkable. She was counseled I believe her symptoms are due to to the steroids and withdrawal used to treat her giant cell arteritis Would recommend testing for adrenal insufficiency. In terms of her palpitations I will change her Coreg to metoprolol 12.5 mg p.o. twice daily for symptom control We will continue to monitor blood pressure overnight with this change Likely DC to home in the a.m. She is already scheduled to see me as an outpatient on the and will keep this appointment to follow her progress History of Present Illness Reason for Consultation: Palpitations Requesting Physician: [facility] hospitalist group Attending Physician: Gerald Ibanez MD History of Present Illness It was my pleasure to see the patient in cardiac consultation today March 12, 2022. She is a very pleasant 81-year-old woman who presented to [facility] on 03/11/2022 with complaints of temperature intolerance, palpitations and labile hypertension. She states that her health is seem to go downhill ever since being treated with prednisone for her giant cell arteritis. She notes that since being off prednisone she has been having difficulty tolerating temperatures, feeling both cold and hot at the same time. She is also noticed that her heart seems to skip beats randomly throughout the day. She denies any chest pain or shortness of breath with exertion. She did have a Zio patch monitor placed as an outpatient which showed no sustained arrhythmias with 4 episodes of nonsustained V. tach, her symptoms on the monitor correlated with normal sinus rhythm. On the day of presentation the patient was taking her blood pressure repeatedly and noticed that it seemed to go up and down. She became concerned and came in the emergency department. Upon presentation her initial work-up was unremarkable and she was admitted to telemetry. She states that she is still having the temperature issues but notes that her palpitations seem to have improved. Allergies Allergy/AdvReac Type Severity Reaction Status Date / Time adhesive Allergy Intermediate LOCAL Verified 03/11/22 20:00 SWELLING, RED AND IRRITATED SKIN ciprofloxacin Allergy Intermediate HIVES Verified 03/11/22 20:00 Penicillins Allergy Intermediate Hives Verified 03/11/22 20:00 latex Allergy Mild SKIN Verified 03/11/22 20:00 IRRITATION codeine AdvReac Intermediate STOMACH Verified 03/11/22 20:00 PROBLEMS morphine AdvReac Intermediate N/V Verified 03/11/22 20:00 Home Medications Medication Instructions Recorded Confirmed Type acetaminophen 325 mg tablet 325 mg PO UD PRN Pain 08/02/19 03/11/22 History (Tylenol) fexofenadine 180 mg tablet 180 mg PO QAM PRN Congestion 03/24/21 03/11/22 History (Chen Allergy) cholecalciferol (vit D3) 1,000 1 tab PO QAM 08/08/21 03/11/22 History unit-vitamin K2 (MK4) 100 mcg tablet polyethylene glycol 3350 17 17 g PO QAM PRN Constipation 08/08/21 03/11/22 History gram/dose oral powder (Miralax) tocilizumab 162 mg/0.9 mL 162 mg subcut Q4WK 11/12/21 03/11/22 History subcutaneous pen injector fluticasone 250 mcg-salmeterol 50 1 inh inhalation BID PRN sob #60 ea 12/08/21 03/11/22 Rx mcg/dose blistr powdr for inhalation (Advair Diskus) rosuvastatin 5 mg tablet 5 mg PO DAILY 01/19/22 03/11/22 History olmesartan 5 mg tablet (Benicar) 5 mg PO BID #90 tabs 02/05/22 03/11/22 Rx albuterol sulfate 90 mcg/actuation 1 inh inhalation UD PRN seasonal 02/18/22 03/11/22 Rx aerosol inhaler allergies #8.5 grams carvedilol phosphate 10 mg 10 mg PO DAILY 03/11/22 03/11/22 History capsule,[id number] multiphase Patient History Medical History Anxiety Atherosclerotic vascular disease 08/2019 neg LE arterial study for stenosis Cerebrovascular small vessel 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 Dheeraj Lloyd - q6m Hiatal hernia History of colon polyps Hx of migraines Hypertension Neurogenic claudication due to lumbar spinal stenosis Osteoporosis Paroxysmal SVT (supraventricular tachycardia) pt states no current problems - does not follow interior wall assembler Restless leg syndrome Seasonal allergies inhalers as need Temporomandibular joint disorder Tricuspid regurgitation Does not follow interior wall assembler Surgical History H/O arthroscopy of left knee H/O colonoscopy H/O ovarian cystectomy H/O tubal ligation History of anesthesia reaction NAUSEA/VOMITTING AND "BAD EXPERIENCE WITH 1ST KNEE SURGERY", SAW GREEN FELT LIKE SHE WAS DYING. History of cataract surgery bilateral History of cystoscopy History of esophagogastroduodenoscopy (EGD) History of temporal artery biopsy (08/02/19) Temporal Artery Biopsy on Left 08/02/19 Dr. Hager - diagnosed with Giant Cell History of tooth extraction History of total knee replacement RT/LEFT Family History Uncle Myocardial infarction Father Diabetes Angina pectoris Family history of diabetes mellitus Unknown Heart disease Migraine Hypertension Denies family history of Ovarian cancer Prostate cancer Breast cancer Lung cancer Colorectal cancer Stroke Social History Smoking Status: Never smoker Second Hand Exposure: No; Hx Alcohol Use: No Hx Substance Use: No Preferred Language: Armenian Communication Ability: Effective Visual Impairment: Limited Hearing Ability: Use of Hearing Aid Chemical Process Project Engineer Required: No Beliefs That Will Affect Care: None marital status: Current Living Situation: Spouse current occupational status: retired current occupation: just retired from [employer] at [employer] in 2020 How many Children do You have: 0 Other Information That Helps Us Care for You: No Feels Safe at Home: Yes Safety Concerns: Feels Safe At This Time Childhood Exposure to Second-Hand Smoke: Yes caffeine: Yes Dental Care, Regularly: Yes Physical Activity Frequency: Daily Physical Activity Frequency Comment: walking Seatbelt Use: always Sunscreen Use: Yes Do you think of yourself as: straight/heterosexual Assistive Devices: Glasses and Hearing Aid - Bilateral Assistive Devices Comment: walking stick when walking dog Review of Systems Review of Systems: All systems reviewed & are unremarkable except as noted in HPI & below Physical Exam Physical Exam: General: Awake, alert and oriented x 3. No acute distress. HEENT: Normocephalic, atraumatic. Pupils equal, round and reactive to light and accommodation. Extraocular muscles are intact. Anicteric sclera. Moist mucous membranes. Neck: No JVD. No bruit. Cardiovascular: Regular. Positive S-4. Normal S-1 and S-2. No S-3. 3/6 mid to late systolic ejection murmur, greatest at the right sternal border, second intercostal space with radiation to the bilateral carotids. No rubs. Pulmonary: Clear to auscultation bilaterally. No rales, rhonchi, or wheezing. Abdomen: Bowel sounds x 4, soft. No rebound, guarding or tenderness. No organomegaly. Extremities: No clubbing, cyanosis or edema. +2 pedal pulses bilaterally. Skin: Warm and dry. Results & Data ([facility]) Vital Signs (Past 12 Hours) Vital Signs Temp Pulse Pulse Resp BP Pulse Ox O2 Del Method 03/12/22 03:59 36.8 C 64 18 119/57 L 97 Room Air 03/12/22 00:20 69 03/11/22 23:30 36.4 C L 70 18 137/81 98 Room Air 03/11/22 22:44 36.3 C L 72 18 169/92 H 98 Room Air 03/11/22 22:37 Room Air 03/11/22 22:23 36.3 C L 72 18 169/92 H 98 Room Air 03/11/22 20:09 65 15 95 Room Air 03/11/22 20:09 65 15 148/73 H 98 Room Air Diagnostic Findings Zio report from 02/17/22 CONCLUSIONS: Final Interpretation : Indication: Palptations Duration: 13 days 21 hours Patient had a min HR of 51 bpm, max HR of 203 bpm, and avg HR of 76 bpm. Predominant underlying rhythm was Sinus Rhythm. 4 Ventricular Tachycardia runs occurred, the run with the fastest interval lasting 18 beats with a max rate of 148 bpm (avg 129 bpm); the run with the fastest interval was also the longest. 23 Supraventricular Tachycardia runs occurred, the run with the fastest interval lasting 10 beats with a max rate of 203 bpm, the longest lasting 14 beats with an avg rate of 92 bpm. Isolated SVEs were rare (<1.0%), SVE Couplets were rare (<1.0%), and SVE Triplets were rare (<1.0%). Isolated VEs were rare (<1.0%), VE Couplets were rare (<1.0%), and no VE Triplets were present. MD notification criteria for Ventricular Tachycardia met - report posted prior to notification per account request (KW). Frequent symptoms predominantly correlate with sinus rhythm, rarely with supraventricular ectopy. (1) Fatigue Fatigue type: unspecified Qualified Code(s): R53.83 - Other fatigue
--- NOTE | 2022-03-12 08:47 | Electrocardiogram Report ---
Test Reason : Blood Pressure : / mmHG Vent. Rate : 072 BPM Atrial Rate : 072 BPM P-R Int : 154 ms QRS Dur : 102 ms QT Int : 420 ms P-R-T Axes : 052 -48 016 degrees QTc Int : 459 ms Normal sinus rhythm Left anterior fascicular block Left ventricular hypertrophy nondiagnostic lateral Q waves Abnormal ECG When compared with ECG of 01-FEB-2022 15:50, No significant change Confirmed by Miles Peters ([id number]) on 03/12/2022 8:47:20 AM Referred By: REFERRED SELF Confirmed By:Miles Peters
--- NOTE | 2022-03-12 08:48 | Electrocardiogram Report ---
Test Reason : Blood Pressure : / mmHG Vent. Rate : 066 BPM Atrial Rate : 066 BPM P-R Int : 154 ms QRS Dur : 100 ms QT Int : 442 ms P-R-T Axes : 051 -57 -20 degrees QTc Int : 463 ms Normal sinus rhythm Left anterior fascicular block Left ventricular hypertrophy Nondiagnostic lateral Q waves T-wave inversion in Inferolateral leads , consider ischemia Abnormal ECG When compared with ECG of 11-MAR-2022 18:00, T wave inversion more evident in Inferior leads T wave inversion now evident in Lateral leads Confirmed by Miles Peters ([id number]) on 03/12/2022 8:48:18 AM Referred By: REFERRED SELF Confirmed By:Miles Peters
[2022-03-12] MEDS ORDERED: [UNRECOGNIZED DRUG - OTHER] PO SCH (09:00)
[2022-03-12] MEDS ORDERED: VITAMIN D3 VITAMIN K2 PO SCH (09:00)
[2022-03-12] MEDS ORDERED: carvediloL 3.125 MG TAB PO SCH (09:00)
[2022-03-12] MEDS: OLMESARTAN MEDOXOMIL 5 MG TAB PO SCH ×2 (09:35→19:53)
[2022-03-12] MEDS: ROSUVASTATIN CALCIUM 5 MG TAB PO SCH (09:36)
[2022-03-12] MEDS: METOPROLOL TARTRATE 25 MG TAB PO SCH ×2 (11:26→19:53)
--- NOTE | 2022-03-12 16:32 | Hospitalist Progress Note ---
Date of Service March 12, 2022 Assessment & Plan (1) Heart palpitations: Plan: Present on admission with intermittent episode of palpitations and labile hypertension. Patient had a Zio patch, which showed likely four episodes of V-tach, longest was of 5 seconds with multiple episodes of SVT. ECHO showed no segmental left ventricular wall motion abnormalities. Normal LV systolic function with EF 55-60% Troponin wnl x 2 cardiology on board carvedilol changed to metoprolol Hypertension. Continue olmesartan for now. carvedilol changed to metoprolol Continue monitor BP History of giant cell arteritis. On tocilizumab shots every 4 weeks. Follow up with Rheumatology. Pt said that since completed long course of steroid that she has been having cold/heat intolerance Will check for adrenal insufficiency by checking cosyntropin in the morning Hyperlipidemia Continue statin Deep venous thrombosis prophylaxis On Sequential compression devices for now. Will add heparin subq Admission and Anticipated Discharge Date Admission Date: March 11, 2022 Subjective Pt was seen and examined for follow up of palpitation Lying in bed with no acute distress. Pt said that she feels ok She said that she gets on/off cold and hot that has been going on since December after completing the course of steroid Denies any chest pain, palpitation, dizziness and SOB Review of Systems Review of Systems: All systems reviewed & are unremarkable except as noted in Subjective Physical Exam Physical Exam: General- No acute distress Head- atraumatic Eyes- PERRL, EOMI, ENT- oropharynx clear Neck- supple, no JVD Lungs- clear to auscultation Heart- regular rhythm; no murmur Abdomen- normal bowel sounds, soft, nontender Extremities- no calf tenderness. +murmur Neuro- alert, oriented x 3; PERRL, EOMI; no facial palsy; no dysarthria Skin- warm & dry Results & Data Results & Data ([facility]) Vital Signs (Past 12 Hours) Vital Signs Temp Pulse Pulse Resp BP Pulse Ox O2 Del Method 03/12/22 16:25 36.7 C 70 20 130/73 95 Room Air 03/12/22 15:44 75 03/12/22 07:00 71 03/12/22 11:45 36.9 C 71 19 109/69 94 Room Air 03/12/22 08:30 36.8 C 63 20 135/76 97 Room Air
[2022-03-12] MEDS: HEPARIN SOD 5,000 UNIT/0.5 ML VIAL SQ SCH (19:58)
[2022-03-12] MEDS ORDERED: HEPARIN SOD 5,000 UNIT/0.5 ML VIAL SQ ONE (20:15)
[2022-03-13] MEDS ORDERED: COSYNTROPIN 250 MCG in SYRINGE 4 ML IV SCH (08:00)
[2022-03-13] MEDS: OLMESARTAN MEDOXOMIL 5 MG TAB PO SCH (08:41)
[2022-03-13] MEDS: ROSUVASTATIN CALCIUM 5 MG TAB PO SCH (08:41)
[2022-03-13] MEDS: METOPROLOL TARTRATE 25 MG TAB PO SCH (08:42)
[2022-03-13] MEDS: HEPARIN SOD 5,000 UNIT/0.5 ML VIAL SQ SCH (08:44)
--- NOTE | 2022-03-13 09:05 | Electrocardiogram Report ---
Test Reason : Blood Pressure : / mmHG Vent. Rate : 071 BPM Atrial Rate : 071 BPM P-R Int : 154 ms QRS Dur : 102 ms QT Int : 440 ms P-R-T Axes : 050 -60 017 degrees QTc Int : 478 ms Normal sinus rhythm Left anterior fascicular block Left ventricular hypertrophy Nonspecific T wave abnormality Anterolateral leads Abnormal ECG When compared with ECG of 12-MAR-2022 06:30, Nonspecific T wave abnormality has replaced inverted T waves in Inferior leads Nonspecific T wave abnormality has replaced inverted T waves in Lateral leads Confirmed by Miles Peters ([id number]) on 03/13/2022 9:05:17 AM Referred By: REFERRED SELF Confirmed By:Miles Peters
--- NOTE | 2022-03-13 10:43 | Cardiology Progress Note ---
Date of Service March 13, 2022 Assessment & Plan (1) Heart palpitations: (2) Fatigue: (3) Elevated fasting glucose: (4) Anxiety: (5) Paroxysmal SVT (supraventricular tachycardia): (6) Giant cell arteritis: (7) Cerebrovascular small vessel disease: Plan The results of the fitter welder both inpatient and outpatient were reviewed with the patient as well as the results of her echocardiogram which was unremarkable. She was counseled I believe her symptoms are due to to the steroids and withdrawal used to treat her giant cell arteritis stim test pending palpitations improved with change of carvedilol to metoprolol tartrate, would continue no arrhythmias on monitor I will place an order in [facility] for script ok to d/c to home She is already scheduled to see me as an outpatient on the and will keep this appointment to follow her progress Admission and Anticipated Discharge Date Admission Date: March 11, 2022 Subjective Pt seen and examined. Telemetry reviewed. Chart reviewed. States that she feels much better today and is anxious for discharge. Review of Systems Review of Systems: All systems reviewed & are unremarkable except as noted in HPI & below Physical Exam Physical Exam: General: Awake, alert and oriented x 3. No acute distress. HEENT: Normocephalic, atraumatic. Pupils equal, round and reactive to light and accommodation. Extraocular muscles are intact. Anicteric sclera. Moist mucous membranes. Neck: No JVD. No bruit. Cardiovascular: Regular. Positive S-4. Normal S-1 and S-2. No S-3. 3/6 mid to late systolic ejection murmur, greatest at the right sternal border, second intercostal space with radiation to the bilateral carotids. No rubs. Pulmonary: Clear to auscultation bilaterally. No rales, rhonchi, or wheezing. Abdomen: Bowel sounds x 4, soft. No rebound, guarding or tenderness. No organomegaly. Extremities: No clubbing, cyanosis or edema. +2 pedal pulses bilaterally. Skin: Warm and dry. Results & Data ([facility]) Vital Signs (Past 12 Hours) Vital Signs Temp Pulse Pulse Resp BP Pulse Ox O2 Del Method 03/13/22 08:07 36.7 C 69 16 124/78 94 Room Air 03/13/22 07:18 67 03/13/22 03:53 36.9 C 71 16 117/76 95 Room Air 03/13/22 00:00 70 (1) Fatigue Fatigue type: unspecified Qualified Code(s): R53.83 - Other fatigue
--- NOTE | 2022-03-13 11:12 | Discharge Summary ---
Date of Service March 13, 2022 Admission HPI Per Admitting Provider CHIEF COMPLAINT: Palpitations and labile hypertension. HISTORY OF PRESENT ILLNESS: An 81-year-old female with past medical history significant for hypertension, history of giant cell arteritis, carotid aneurysm, looks like saw neurosurgery and was stable, history of spinal stenosis, GERD, presents with palpitations and labile hypertension. The patient had a Zio patch for palpitation and the reading came back as having four episodes of V-tach, longest was 5 seconds and multiple episodes of SVT. She says she had a followup appointment with Cardiology, but her symptoms got worse and she had a lot of palpitations last night and also her blood pressure was going up and down, which worried her and she came to the ER .She also states since last 3 months, she was feeling hot and cold.Denies any chest pain. Sometimes she will have symptoms of short of breath. Denies any headache, no dizziness. The patient says on and off she feels blurred visions. No earache, no runny nose, no sore throat, no cough, no difficulty swallowing. Appetite is okay. No nausea, no vomiting, no abdominal pain. Normal bowel and bladder movements. No swelling in the legs. Ambulates without any support, lives with her . Currently, resting comfortably and hemodynamically stable. Admission Exam Per Admitting Provider GENERAL: The patient is of moderate build, not in acute distress. VITAL SIGNS: Temperature 36.3, pulse 65, respiratory rate 15, blood pressure 148/73, oxygen 95% on room air. HEENT: Pupils equal, round and reactive to light. Oral mucosa moist. NECK: No JVD, no neck masses. CARDIOVASCULAR: S1 and S2 heard. Regular rate and rhythm. No murmur, no gallop. RESPIRATORY SYSTEM: Normal AP diameter. No accessory muscle use. No wheezing, no crackles. ABDOMEN: Soft, bowel sounds present, nontender, no distention. CENTRAL NERVOUS SYSTEM: Cranial nerves II-XII grossly intact, nonfocal. EXTREMITIES: No edema, no erythema. Principal Diagnosis Heart palpitations Hypertension. History of giant cell arteritis. Hyperlipidemia Discharge Exam General- No acute distress Head- atraumatic Eyes- PERRL, EOMI, ENT- oropharynx clear Neck- supple, no JVD Lungs- clear to auscultation Heart- regular rhythm; no murmur Abdomen- normal bowel sounds, soft, nontender Extremities- no calf tenderness. +murmur Neuro- alert, oriented x 3; PERRL, EOMI; no facial palsy; no dysarthria Skin- warm & dry Discharge Data Allergies Allergy/AdvReac Type Severity Reaction Status Date / Time adhesive Allergy Intermediate LOCAL Verified 03/11/22 20:00 SWELLING, RED AND IRRITATED SKIN ciprofloxacin Allergy Intermediate HIVES Verified 03/11/22 20:00 Penicillins Allergy Intermediate Hives Verified 03/11/22 20:00 latex Allergy Mild SKIN Verified 03/11/22 20:00 IRRITATION codeine AdvReac Intermediate STOMACH Verified 03/11/22 20:00 PROBLEMS morphine AdvReac Intermediate N/V Verified 03/11/22 20:00 Consultations 03/11/22 19:45 ED Decision to Admit Stat 03/12/22 08:00 Consult Cardiology Routine Ordered Studies Laboratory Results WBC 3.39 K/ul (4.8-10.8) L 03/12/22 05:29 RBC 3.89 M/uL (3.93-5.22) L 03/12/22 05:29 Hgb 12.0 g/dl (12.0-16.0) 03/12/22 05:29 Hct 36.0 % (34.1-44.9) 03/12/22 05:29 MCV 92.5 fL (80.0-100.0) 03/12/22 05:29 MCH 30.8 pg (25.0-34.0) 03/12/22 05:29 MCHC 33.3 g/dL (32.0-36.0) 03/12/22 05:29 RDW Std Deviation 41.0 fL (36.4-46.3) 03/12/22 05:29 RDW Coeff of Angie 12.0 % (11.5-14.5) 03/12/22 05:29 Plt Count 292 K/uL (130-400) 03/12/22 05:29 MPV 9.7 fL (9.4-12.3) 03/12/22 05:29 Immature Gran % (Auto) 0.3 % 03/12/22 05:29 Neut % (Auto) 38.9 % 03/12/22 05:29 Lymph % (Auto) 39.5 % 03/12/22 05:29 Nash % (Auto) 13.3 % 03/12/22 05:29 Eos % (Auto) 5.9 % 03/12/22 05:29 Baso % (Auto) 2.1 % 03/12/22 05:29 Neut # (Auto) 1.32 K/uL (1.4-6.5) L 03/12/22 05:29 Lymph # (Auto) 1.34 K/uL (1.2-3.4) 03/12/22 05:29 Nash # (Auto) 0.45 K/uL (0.24-0.82) 03/12/22 05:29 Eos # (Auto) 0.20 K/uL (0-0.50) 03/12/22 05:29 Baso # (Auto) 0.07 K/uL (0-0.2) 03/12/22 05:29 Immature Gran # (Auto) 0.01 K/uL (0.00-0.02) 03/12/22 05:29 PT 10.8 Seconds (9.0-12.0) 03/11/22 18:00 INR 1.0 (0.9-1.1) 03/11/22 18:00 APTT 23.8 Seconds (21.0-31.0) 03/11/22 18:00 PTT Ratio 0.9 03/11/22 18:00 Sodium 139 mmol/L (136-145) 03/12/22 05:29 Potassium 4.0 mmol/L (3.5-5.1) 03/12/22 05:29 Chloride 109 mmol/L (98-107) H 03/12/22 05:29 Carbon Dioxide 25 mmol/L (21-32) 03/12/22 05:29 Anion Gap 5 (3-11) 03/12/22 05:29 BUN 15 mg/dl (6-23) 03/12/22 05:29 Creatinine 0.53 mg/dl (0.6-1.2) L 03/12/22 05:29 Est Cr Clr Drug Dosing 68.5 ml/min 03/12/22 05:29 Est GFR ( Amer) 103.2 ml/min 03/12/22 05:29 Est GFR (Non-Af Amer) 89.0 ml/min 03/12/22 05:29 BUN/Creatinine Ratio 28.3 (10-20) H 03/12/22 05:29 Glucose 97 mg/dl (70-99(Fasting)) 03/12/22 05:29 Calcium 8.6 mg/dl (8.5-10.1) 03/12/22 05:29 Magnesium 2.1 mg/dl (1.7-2.4) 03/12/22 05:29 Total Bilirubin 0.4 mg/dl (0.2-1.0) 03/11/22 18:00 AST 21 U/L (13-39) 03/11/22 18:00 ALT 16 U/L (7-52) 03/11/22 18:00 Alkaline Phosphatase 40 U/L (34-104) 03/11/22 18:00 Troponin I High Sens 5.7 pg/ml (0-14) 03/12/22 05:29 Total Protein 6.9 gm/dl (6.0-8.3) 03/11/22 18:00 Albumin 4.2 gm/dl (3.4-5.0) 03/11/22 18:00 Globulin 2.7 gm/dl (2.5-4.0) 03/11/22 18:00 Albumin/Globulin Ratio 1.6 (0.9-2) 03/11/22 18:00 Cortisol Response mcg/dl 03/13/22 07:54 SARS-CoV-2, RNA, NAAT NEGATIVE (NEGATIVE) 03/11/22 20:07 Hospital Course (1) Heart palpitations: Present on admission with intermittent episode of palpitations and labile hypertension. Patient had a Zio patch, which showed likely four episodes of V-tach, longest was of 5 seconds with multiple episodes of SVT. ECHO showed no segmental left ventricular wall motion abnormalities. Normal LV systolic function with EF 55-60% Troponin wnl x 2 cardiology on board carvedilol changed to metoprolol Continue metoprolol 12.5 mg BID OK from cardiology to discharge home today Hypertension. Continue olmesartan for now. carvedilol changed to metoprolol Continue monitor BP History of giant cell arteritis. On tocilizumab shots every 4 weeks. Follow up with Rheumatology. Pt said that since completed long course of steroid that she has been having cold/heat intolerance Cosyntropin test was normal Hyperlipidemia Continue statin Deep venous thrombosis prophylaxis on heparin subq Disposition Discharge home today Total Time Total Time Spent Total Time Spent (In Minutes): 35 minutes Discharge Plan Discharge Items Patient Disposition: Home - Self-Care Reason For Visit: PALPITATIONS, HTN Discharge Diagnosis: Heart palpitations Hypertension. History of giant cell arteritis. Hyperlipidemia Activity: Resume your previous activity Non-emergency contact: Primary Care Provider and Clinical Safety Specialist Call non-emergency contact if: you have any medication questions and your symptoms worsen Follow-up/Referrals: Pedro Henson MD [Primary Care Provider] - (Date & Time 03/19/2022 10:20 AMProvider MARBELLA Don-K[facility]ep[facility] ) Diet: Heart Healthy Addtl Attending Provider Instructions: Follow up with your primary care provider 03/19/2022 @ 10:20 AM Milagro Cooper PA-C (Dr. Henson's Colleague) [facility] Follow up with cardiology dr. Mcdonnell on 03/16 ( already scheduled) ( Dr. Mcdonnell sent the script to the pharmacy through [facility]) Seek medical attention if your symptoms reoccur fall precaution Pending Studies at Discharge: No Stand-Alone Forms: My [employer], Smoking Cessation Medications and DC Order Prescriptions: New metoprolol tartrate 25 mg Tablet 12.5 mg PO BID Qty: 30 0RF Continued vitamin D3-vitamin K2 (MK4) 1,000-100 unit-mcg tablet 1 tab PO QAM Rx Instructions: PER PT "NOT REGULARLY". polyethylene glycol 3350 [Miralax] 17 gram/dose powder 17 g PO QAM PRN (Reason: Constipation) fluticasone propion-salmeterol [Advair Diskus] 250-50 mcg/dose blister with device 1 inh inhalation BID PRN (Reason: sob) Qty: 60 3RF Rx Instructions: rinse mouth after use albuterol sulfate 90 mcg/actuation HFA aerosol inhaler 1 inh inhalation UD PRN (Reason: seasonal allergies) Qty: 8.5 3RF tocilizumab 162 mg/0.9 mL pen injector 162 mg SQ Q4WK Label Comments: once every 3 weeks Rx Instructions: PER PT "THINK ABOUT A WEEK AGO". olmesartan [Benicar] 5 mg tablet 5 mg PO BID Qty: 90 3RF Rx Instructions: TAKES IN AFTERNOON & HS acetaminophen [Tylenol] 325 mg Tablet 325 mg PO UD PRN (Reason: Pain) rosuvastatin 5 mg tablet 5 mg PO DAILY fexofenadine [Chen Allergy] 180 mg Tablet 180 mg PO QAM PRN (Reason: Congestion) Label Comments: it's the 12 hour Discontinued carvedilol phosphate 10 mg capsule, ER multiphase 24 hr 10 mg PO DAILY Discharge Orders: Discharge Order (Routine); Ordered 03/13/22 Ordered By: Gerald Ibanez Admission Data Admit Date/Time: 03/11/22 21:09 Attending Provider: Gerald Ibanez Admit Provider: Duy Escamilla Primary Care Provider: Pedro Henson Other Providers: Duy Escamilla ; Zion Flores Other Interventions: Discharge Summary Assessment (RN) Last Done: 03/13/22 11:30
== END 2022-03-13 12:11 | disposition home or self-care (01) | DRG 310 ==
LOC: ED 17:34 → 4W 21:09